=== PATIENT | female | born 1990 | race Caucasian/White ===

== ENCOUNTER → 2016-09-08 | Outpatient (CLI) | payer OTHER ==
--- NOTE | 2016-09-08 13:37 | Diagnostic Imaging Report ---
INDICATION: Chronic hepatitis C. TECHNIQUE: Multiple grayscale sonographic images were obtained of the right upper quadrant of the abdomen. CORRELATION STUDY: None FINDINGS: LIVER: The liver measures 19 cm. There is uniform echotexture. GALLBLADDER: The gallbladder is present and demonstrates no evidence of shadowing gallstones or biliary sludge. No abnormal gallbladder wall thickening or pericholecystic fluid. COMMON BILE DUCT: Within normal limits at 2 mm. PANCREAS: Visualized portions appearing unremarkable. RIGHT KIDNEY: Measures 10.6 cm. No hydronephrosis. OTHER: None. IMPRESSION: 1. Negative appearing right upper quadrant abdominal ultrasound. Dictated by: Dictated on workstation # [id number]
== END ==
LOC: RAD 08:15
PROVIDERS: ATTEND Nurse Practitioner Family
DX: B18.2 Chronic viral hepatitis C (principal)
CPT/HCPCS: 76705